=== PATIENT | female | born 1985 | race African-American/Black ===

== ENCOUNTER 2019-07-10 17:24 | Emergency (ER) | payer MEDICARE ==
[~2019-07-10] VITALS: Ht 160 cm; Wt 84.0 kg
[2019-07-10 17:26] VITALS: BP 122/78
== END 2019-07-10 19:12 | disposition home or self-care (01) ==
LOC: ER 17:24
DX: R07.89 Other chest pain (principal); H61.22 Impacted cerumen, left ear
CPT/HCPCS: 93005; 99283